=== PATIENT | female | born 1995 | race Caucasian/White ===

== ENCOUNTER 2021-10-17 01:57 | Emergency (ER) | payer OTHER ==
[~2021-10-17] VITALS: Ht 172.7 cm; Wt 72.7 kg
[2021-10-17] MEDS ORDERED: LORazepam 2MG/ML-1ML VIAL IV ONE (02:30)
[2021-10-17] MEDS ORDERED: SODIUM CHLORIDE 0.9% 1,000 ML IV ONE (02:30)
[2021-10-17 02:43] LABS: Urine Bacteria NONE SEEN /hpf (None Seen); Urine Blood Negative /uL (Negative); Urine Mucus FEW (None Seen); Urine Specific Gravity 1.019 (1.001-1.035); Urine WBC 4 /hpf (0 - 5)
[2021-10-17 03:03] LABS: Basophils # (auto) 0.1 10 ^3/uL (0-0.2); Basophils % (auto) 0.6 % (0.0-2.0); Eosinophils # (auto) 0.3 10 ^3/uL (0-0.8); Eosinophils % (auto) 3.8 % (0.0-7.0); Hematocrit 43.5 % (36.0-46.0); Hemoglobin 14.7 g/dL (12.2-16.2); Lymphocytes # (auto) 2.8 10 ^3/uL (0.4-5.4); Lymphocytes % (auto) 31.5 % (10.0-50.0); Mean Corpuscular Hemoglobin 28.3 pg (28.0-32.0); Mean Corpuscular Hgb Conc. 33.9 g/dL (32.0-36.0); Mean Corpuscular Volume 83.6 fL (80.0-100.0); Monocytes # (auto) 0.8 10 ^3/uL (0-1.3); Monocytes % (auto) 8.9 % (0.0-12.0); Neutrophils # (auto) 4.9 10 ^3/uL (1.6-8.6); Neutrophils % (auto) 55.2 % (37.0-80.0)
[2021-10-17 03:22] LABS: Albumin 4.1 g/dL (3.4-5.0); Potassium 3.9 mmol/L (3.5-5.1)
[2021-10-17 03:24] LABS: BUN/Creatinine Ratio 18.4; Bilirubin, Total 0.4 mg/dL (0.2-1.0); Total Protein 7.4 g/dL (6.4-8.2)
[2021-10-17 05:18] VITALS: BP 123/74
== END 2021-10-17 05:22 | disposition home or self-care (01) ==
LOC: ER 01:57 → EDBD 01:57 → ER 05:21
DX: F41.9 Anxiety disorder, unspecified (principal); R11.2 Nausea with vomiting, unspecified; R07.89 Other chest pain; E78.5 Hyperlipidemia, unspecified
CPT/HCPCS: 36415; 80053; 81001; 84484; 85025; 93005; 96361; 96374; 99284; J2060; J7030